=== PATIENT | male | born 1995 | race Caucasian/White ===

== ENCOUNTER 2022-01-02 01:59 | Emergency (ER) | payer OTHER | END 2022-01-02 04:27 | disposition home or self-care (01) | LOC: FER 01:59 | DX: S01.81XA Laceration without foreign body of other part of head, initial encounter (principal); Z23 Encounter for immunization; W22.8XXA Striking against or struck by other objects, initial encounter; Y92.89 Other specified places as the place of occurrence of the external cause; Y99.0 Civilian activity done for income or pay; Z28.310 Unvaccinated for COVID-19 | CPT/HCPCS: 90471; 90715 ==